=== PATIENT | female | born 1990 | race Caucasian/White ===

== ENCOUNTER 2017-04-14 14:42 | Emergency (ER) | payer OTHER ==
[2017-04-14] MEDS ORDERED: Lidocaine 1% 20 ML MDV INJECT ONE (15:05)
--- NOTE | 2017-04-14 15:08 | EDM.PDOC ---
ED HPI GENERAL MEDICAL PROBLEM - General Chief Complaint: Lower Extremity Injury/Pain Stated Complaint: FOOT PAIN R BIG TOE Time Seen by Provider: 04/14/17 14:56 Source of Information: Reports: Patient History Limitations: Reports: No Limitations - History of Present Illness INITIAL COMMENTS - FREE TEXT/NARRATIVE: HISTORY AND PHYSICAL: History of present illness: Patient is a 26-year-old female who presents to the emergency room after a crush injury to her right great toe. She states she was moving a P on a bench when it fell, crushing the right great toe. She does have a laceration along the nail bed, has a dressing on it for bleeding management. Tetanus is up to date. Review of systems: As per history of present illness and below otherwise all systems reviewed and negative. Past medical history: As per history of present illness and as reviewed below otherwise noncontributory. Surgical history: As per history of present illness and as reviewed below otherwise noncontributory. Social history: No reported history of drug or alcohol abuse. Family history: As per history of present illness and as reviewed below otherwise noncontributory. Physical exam: General: Well-developed and well-nourished 26-year-old female. Alert and oriented. Appears nontoxic and in no acute distress. HEENT: Atraumatic, normocephalic, pupils reactive, negative for conjunctival pallor or scleral icterus, mucous membranes moist, throat clear, neck supple, nontender, trachea midline. Lungs: Clear to auscultation, breath sounds equal bilaterally, chest nontender. Heart: S1S2, regular, negative for clicks, rubs, or JVD. Abdomen: Soft, nondistended, nontender. Negative for masses or hepatosplenomegaly. Negative for costovertebral tenderness. Pelvis: Stable nontender. Genitourinary: Deferred. Rectal: Deferred. Extremities: All extremities herself with full range of motion without difficulty or deficit, negative for cords or calf pain. Neurovascular unremarkable. Skin: Laceration to the base of the nailbed on the right great toe, measuring 2 cm, the medial nail is visable (popped through skin). Neuro: Awake, alert, oriented. Cranial nerves II through XII unremarkable. Cerebellum unremarkable. Motor and sensory unremarkable throughout. Exam nonfocal. Diagnostics: X-ray Therapeutics: 1% lidocaine Bacitracin bulky dressing Post op shoe with crutches Impression: Comminuted minimally displaced phalanx fracture, right great toe Plan: 1. Antibiotic has been prescribed to you. Please take as directed. Continue to monitor for signs of infection as we discussed. 2. It's important for you to follow-up with podiatry. Dr. Arrington's phone number has been given to you. As we discussed, you may lose the nail. 3. Wrights 5/325mg, 1-2 tabs every 4-6 hours as needed has been prescribed. This is a narcotic so do not take it while needing to be driving or functioning with her children. Also take ibuprofen as needed for breakthrough pain. Rest, ice, elevate the extremity. 4. As we discussed please return to the ED as needed. Definitive disposition and diagnosis as appropriate pending reevaluation and review of above. Onset: Today Duration: Minutes: Location: Reports: Lower Extremity, Right right big toe Pain Score (Numeric/FACES): 5 - Related Data Allergies Allergy/AdvReac Type Severity Reaction Status Date / Time No Known Allergies Allergy Verified 04/14/17 14:53 Home Meds: Home Meds . [No Known Home Meds] 04/14/17 [History] Past Medical History HEENT History: Reports: None Cardiovascular History: Reports: None Respiratory History: Reports: None Gastrointestinal History: Reports: None Genitourinary History: Reports: None PATIENT SUPPORT ASSISTANT History: Reports: Musculoskeletal History: Reports: None Neurological History: Reports: None Psychiatric History: Reports: None Endocrine/Metabolic History: Reports: None Hematologic History: Reports: None Immunologic History: Reports: None Oncologic (Cancer) History: Reports: None Dermatologic History: Reports: None - Past Surgical History Head Surgeries/Procedures: Reports: None HEENT Surgical History: Reports: None Cardiovascular Surgical History: Reports: None Respiratory Surgical History: Reports: None GI Surgical History: Reports: None Female Surgical History: Reports: None Endocrine Surgical History: Reports: None Musculoskeletal Surgical History: Reports: None Oncologic Surgical History: Reports: None Social & Family History - Family History Family Medical History: Noncontributory - Tobacco Use Smoking Status *Q: Never Smoker - Caffeine Use Caffeine Use: Reports: None - Recreational Drug Use Recreational Drug Use: No Review of Systems - Review of Systems Review Of Systems: ROS reveals no pertinent complaints other than HPI. ED EXAM, GENERAL - Physical Exam Exam: See Below (See dictation) ED TRAUMA EXTREMITY PROCEDURES - Laceration/Wound Repair Right great toe Appearance: Linear Distal NVT: Neuro & Vascular Intact, No Tendon Injury Anesthetic Type: Local Local Anesthesia - Lidocaine (Xylocaine): 1% Plain Local Anesthetic Volume: 5cc Skin Prep: Chlorhexidine (Hibiciens), Saline, Sterile Drape Saline Irrigation (cc's): 20 Exploration/Debridement/Repair: Wound Explored, No Foreign Material Found Closed With: Sutures Suture Size: other (5-0) # of Sutures: 4 Suture Type: Nylon Course - Vital Signs Last Recorded V/S: Last Vital Signs Temp 98.0 F 04/14/17 14:53 Pulse 55 L 04/14/17 14:53 Resp 18 04/14/17 14:53 BP 138/57 L 04/14/17 14:53 Pulse Ox 99 04/14/17 14:53 - Orders/Labs/Meds Orders: Active Orders 24 hr Category Date Time Status Toes Great Toe Rt T5 [CR] Stat Exams 04/14/17 15:04 Ordered Meds: Medications Discontinued Medications Generic Name Dose Route Start Last Admin Trade Name Freq PRN Reason Stop Dose Admin Lidocaine HCl 20 ml 04/14/17 15:05 Xylocaine 1% INJECT 04/14/17 15:06 ONETIME ONE Departure - Departure Time of Disposition: 15:59 Disposition: Home, Self-Care 01 Clinical Impression: Nailbed injury Phalanx fracture, foot Qualifiers: Encounter type: initial encounter Toe: great toe Fracture type: open Phalanx: distal Fracture alignment: displaced Laterality: right Qualified Code(s): S92.421B - Displaced fracture of distal phalanx of right great toe, initial encounter for open fracture - Discharge Information Referrals: PCP,None [Primary Care Provider] - Forms: ED Department Discharge Additional Instructions: My general discharge The following information is given to patients seen in the emergency department who are being discharged to home. This information is to outline your options for follow-up care. We provide all patients seen in our emergency department with a follow-up referral. The need for follow-up, as well as the timing and circumstances, are variable depending upon the specifics of your emergency department visit. If you don't have a primary care physician on staff, we will provide you with a referral. We always advise you to contact your personal physician following an emergency department visit to inform them of the circumstance of the visit and for follow-up with them and/or the need for any referrals to a consulting specialist. The emergency department will also refer you to a specialist when appropriate. This referral assures that you have the opportunity for follow-up care with a specialist. All of these measure are taken in an effort to provide you with optimal care, which includes your follow-up. Under all circumstances we always encourage you to contact your private physician who remains a resource for coordinating your care. When calling for follow-up care, please make the office aware that this follow-up is from your recent emergency room visit. If for any reason you are refused follow-up, please contact the [facility] Emergency Department at and asked to speak to the emergency department charge nurse. [facility] DR FRANCO (PODIATRY) [address] [place] [id number] 1. Antibiotic has been prescribed to you. Please take as directed. Continue to monitor for signs of infection as we discussed. 2. It's important for you to follow-up with podiatry. Dr. Arrington's phone number has been given to you. As we discussed, you may lose the nail. 3. Wrights 5/325mg, 1-2 tabs every 4-6 hours as needed has been prescribed. This is a narcotic so do not take it while needing to be driving or functioning with her children. Also take ibuprofen as needed for breakthrough pain. Rest, ice, elevate the extremity. 4. As we discussed please return to the ED as needed. - My Orders Last 24 Hours: My Active Orders 04/14/17 15:04 Toes Great Toe Rt T5 [CR] Stat - Assessment/Plan Last 24 Hours: My Active Orders 04/14/17 15:04 Toes Great Toe Rt T5 [CR] Stat
[2017-04-14] MEDS ORDERED: Bacitracin Oint 1 GM U/D Packet TOP ONE (16:07)
--- NOTE | 2017-04-14 18:41 | CR ---
EXAM DATE: 04/14/17 PATIENT'S AGE: 26 Patient: BRITTON NGUYEN Facility: [place], [place] Site . Site : 1990 Study: XRay Extremity Right Toes [id number] 3:30:55 PM Ordering Physician: Doctor Maynard Final Report: Indication: Dropped piano bench on foot. Technique: Right foot 1st digit three views. Comparison: None. Findings: There is a comminuted minimally displaced fracture involving the tuft of the distal 1st phalanx. No additional osseous abnormality. No radiopaque foreign body in the soft tissues. Impression: Fracture of the distal 1st phalanx. Dictated by Damian Guerrier MD @ 04/14/2017 3:35:10 PM Dictated by: Damian Guerrier MD @ 04/14/2017 15:35:24 (Electronic Signature) Report Signed by Proxy. ANDER
== END 2017-04-14 16:25 | disposition home or self-care (01) ==
LOC: MW.ED 14:42
DX: S92.421B Displaced fracture of distal phalanx of right great toe, initial encounter for open fracture (principal); W20.8XXA Other cause of strike by thrown, projected or falling object, initial encounter
CPT/HCPCS: 12001; 73660-26-T5; 73660-T5; 99283

== ENCOUNTER 2018-08-01 01:38 | Inpatient (IN) | payer BC, OTHER ==
[2018-08-01] MEDS ORDERED: Sodium Chloride 0.9% 2.5 ML Syringe FLUSH PRN (01:50)
[2018-08-01] MEDS ORDERED: Sodium Chloride 0.9% 10 ML Syringe FLUSH PRN (01:50)
[2018-08-01] MEDS ORDERED: Tranexamic Acid 1,000 MG in Sodium Chloride 0.9% 100 ML IV PRN (01:50)
[2018-08-01] MEDS ORDERED: Methylergonovine 0.2 MG/1 ML Amp IM PRN (01:50)
[2018-08-01] MEDS ORDERED: Carboprost Tromethamine 250 MCG/1 ML Amp IM PRN (01:50)
[2018-08-01] MEDS ORDERED: Misoprostol 200 MCG Tab PO PRN (01:50)
[2018-08-01] MEDS ORDERED: Ondansetron 4 MG/2 ML SDV IV PRN (01:50)
[2018-08-01] MEDS ORDERED: Sodium Chloride 0.9% 10 ML SDV IV PRN (01:50)
[2018-08-01] MEDS ORDERED: Water For Irrigation,Sterile 1,000 ML Container IRR PRN (01:50)
[2018-08-01] MEDS ORDERED: Nalbuphine 10 MG/1 ML Vial IVPUSH PRN (01:50)
[2018-08-01] MEDS ORDERED: Lidocaine 1% 50 ML MDV INJECT PRN (01:50)
[2018-08-01] MEDS ORDERED: Butorphanol 1 MG/ML SDV IVPUSH PRN (01:50)
[2018-08-01] MEDS ORDERED: Oxytocin/0.9 % Sodium Chloride 30 UNIT/500 ML BAG IV SCH (02:00)
[2018-08-01] MEDS: Lactated Ringers 1,000 ML IV SCH ×3 (02:20→03:46)
--- NOTE | 2018-08-01 02:40 | PCM.LDHP ---
L&D History of Present Illness - General Date of Service: 08/01/18 Admit Problem/Dx: Patient Status Order with Admit Dx/Problem 08/01/18 01:46 Patient Status [ADT] Routine 08/01/18 01:50 Patient Status [ADT] Routine Admission Diagnosis/Problem Admission Diagnosis/Problem 08/01/18 02:35 28yo 08/06/2018 39 2/7weeks, O+, R-NI, GBS neg. Comes in active labor Source of Information: Patient History Limitations: Reports: No Limitations - History of Present Illness Timing/Duration: Reports: minutes: Location, : Reports: Abdomen Quality: Reports: Ache, Stabbing Severity: Moderate Improves with: Reports: None Worsens with: Reports: None Associated Symptoms: Reports: N - Related Data Allergies/Adverse Reactions: Allergies Allergy/AdvReac Type Severity Reaction Status Date / Time No Known Allergies Allergy Verified 02/10/18 22:16 Home Medications: Home Meds . [No Known Home Meds] 04/14/17 [History] Past Medical History HEENT History: Reports: None Cardiovascular History: Reports: None Respiratory History: Reports: None Gastrointestinal History: Reports: None Genitourinary History: Reports: None REIMBURSEMENT LIAISON History: Reports: Musculoskeletal History: Reports: None Neurological History: Reports: None Psychiatric History: Reports: None Endocrine/Metabolic History: Reports: None Hematologic History: Reports: None Immunologic History: Reports: None Oncologic (Cancer) History: Reports: None Dermatologic History: Reports: None - Infectious Disease History Infectious Disease History: Reports: None - Past Surgical History Head Surgeries/Procedures: Reports: None HEENT Surgical History: Reports: None Cardiovascular Surgical History: Reports: None Respiratory Surgical History: Reports: None GI Surgical History: Reports: None Female Surgical History: Reports: None Endocrine Surgical History: Reports: None Musculoskeletal Surgical History: Reports: None Oncologic Surgical History: Reports: None Social & Family History - Family History Family Medical History: Noncontributory - Caffeine Use Caffeine Use: Reports: None H&P Review of Systems - Review of Systems: Review Of Systems: See Below General: Reports: No Symptoms HEENT: Reports: No Symptoms Pulmonary: Reports: No Symptoms Cardiovascular: Reports: No Symptoms Gastrointestinal: Reports: No Symptoms Genitourinary: Reports: No Symptoms Musculoskeletal: Reports: No Symptoms Skin: Reports: No Symptoms Psychiatric: Reports: No Symptoms Neurological: Reports: No Symptoms Hematologic/Lymphatic: Reports: No Symptoms Immunologic: Reports: No Symptoms L&D Exam - Exam Exam: See Below - OB Specific Contraction Intensity: Moderate Movement: Active Heart Tones: Present Heart Tones per Min: 155 Heart Rate (FHR) Variability: Moderate (6-25 bmp) Presentation: Vertex Estimated Weight: 4000 - Millan Score Millan Score Cervix Position: Midposition Millan Score Consistency: Soft Millan Score Effacement: >80% Millan Score Dilation: > 5 cm - Exam General: Alert, Oriented, Cooperative HEENT: Hearing Intact Lungs: Normal Respiratory Effort GI/Abdominal Exam: Soft, Non-Tender Rectal Exam: Deferred Genitourinary: Normal external exam, Normal bimanual exam, Cervical dilitation Back Exam: Normal Inspection, Full Range of Motion Extremities: Normal Inspection, Normal Range of Motion, Non-Tender, No Pedal Edema, Normal Capillary Refill Skin: Warm, Dry, Intact Neurological: Cranial Nerves Intact, Reflexes Equal Bilateral, Strength Equal Bilateral, Normal Speech, Normal Tone Psychiatric: Alert, Normal Affect, Normal Mood - Patient Data Lab Results Last 24 hrs: Laboratory Results - last 24 hr 08/01/18 Range/Units 02:07 WBC 7.68 (4.0-11.0) K/uL RBC 3.96 L (4.30-5.90) M/uL Hgb 12.4 (12.0-16.0) g/dL Hct 35.9 L (36.0-46.0) % MCV 90.7 (80.0-98.0) fL MCH 31.3 (27.0-32.0) pg MCHC 34.5 (31.0-37.0) g/dL RDW Std Deviation 43.2 (28.0-62.0) fl RDW Coeff of Channing 13 (11.0-15.0) % Plt Count 160 (150-400) K/uL MPV 11.40 (7.40-12.00) fL Nucleated RBC % 0.0 /100WBC Nucleated RBCs # 0 K/uL Result Diagrams: 08/01/18 02:07 - Problem List (1) Supervision of normal IUP (intrauterine ) in multigravida SNOMED Code(s): 335538637, 880680588, [id number] ICD Code: Z34.80 - ENCOUNTER FOR SUPRVSN OF NORMAL , UNSP TRIMESTER Status: Acute Priority: High Current Visit: Yes Qualifiers: Trimester: third trimester Qualified Code(s): Z34.83 - Encounter for supervision of other normal , third trimester Problem List Initiated/Reviewed/Updated: Yes Orders Last 24hrs: Active Orders 24 hr Category Date Time Status Patient Status [ADT] Routine ADT 08/01/18 01:50 Active May Shower [RC] ASDIRECTED Care 08/01/18 01:50 Active Notify Provider [RC] PRN Care 08/01/18 01:50 Active Up ad Radha [RC] ASDIRECTED Care 08/01/18 01:46 Active Up ad Radha [RC] ASDIRECTED Care 08/01/18 01:50 Active Vital Signs [RC] PER UNIT ROUTINE Care 08/01/18 01:46 Active Vital Signs [RC] PER UNIT ROUTINE Care 08/01/18 01:50 Active Regular Diet [DIET] Diet 08/01/18 Breakfast Active TYPE AND SCREEN [BBK] Stat Lab 08/01/18 02:07 Received Butorphanol [Stadol] Med 08/01/18 01:50 Active 1 mg IVPUSH Q1H PRN Carboprost Tromethamine [Hemabate DS] Med 08/01/18 01:50 Active 250 mcg IM ASDIRECTED PRN Lactated Ringers [Ringers, Lactated] 1,000 ml Med 08/01/18 02:00 Active IV ASDIRECTED Lidocaine 1% [Xylocaine 1%] Med 08/01/18 01:50 Active 50 ml INJECT ONETIME PRN Methylergonovine [Methergine] Med 08/01/18 01:50 Active 0.2 mg IM ASDIRECTED PRN Nalbuphine [Nubain] Med 08/01/18 01:50 Active 10 mg IVPUSH Q1H PRN Ondansetron [Zofran] Med 08/01/18 01:50 Active 4 mg IV Q6H PRN Oxytocin/0.9 % Sodium Chloride [Oxytocin 30 Unit/500 ML Med 08/01/18 02:00 Active -NS] 30 unit in 500 ml IV TITRATE Sodium Chloride 0.9% [Normal Saline] Med 08/01/18 01:50 Active 10 ml IV ASDIRECTED PRN Sodium Chloride 0.9% [Saline Flush] Med 08/01/18 01:50 Active 10 ml FLUSH ASDIRECTED PRN Sodium Chloride 0.9% [Saline Flush] Med 08/01/18 01:50 Active 2.5 ml FLUSH ASDIRECTED PRN Tranexamic Acid [Cyklokapron] 1,000 mg Med 08/01/18 01:50 Active Sodium Chloride 0.9% [Normal Saline] 100 ml IV ONETIME Water For Irrigation,Sterile [Sterile Water for Med 08/01/18 01:50 Active Irrigation] 1,000 ml IRR ASDIRECTED PRN miSOPROStol [Cytotec] Med 08/01/18 01:50 Active 200 mcg PO ONETIME PRN Scalp Electrode [WOMSER] Per Unit Routine Oth 08/01/18 01:50 Ordered Peripheral IV Insertion Adult [OM.PC] Routine Oth 08/01/18 01:50 Ordered Resuscitation Status Routine Resus Stat 08/01/18 01:46 Ordered Medication Orders Butorphanol Tartrate (Stadol) 1 mg IVPUSH Q1H PRN PRN Reason: Pain Carboprost Tromethamine (Hemabate Ds) 250 mcg IM ASDIRECTED PRN PRN Reason: Post Hemorrhage Tranexamic Acid 1,000 mg/ (Sodium Chloride) 110 mls @ 660 mls/hr IV ONETIME PRN PRN Reason: Bleeding Lactated Ringer's (Ringers, Lactated) 1,000 mls @ 150 mls/hr IV ASDIRECTED MATEUSZ Oxytocin/Sodium Chloride (Oxytocin 30 Unit/500 Ml-Ns) 30 unit in 500 mls @ 999 mls/hr IV TITRATE MATEUSZ Lidocaine HCl (Xylocaine 1%) 50 ml INJECT ONETIME PRN PRN Reason: Laceration repair Methylergonovine Maleate (Methergine) 0.2 mg IM ASDIRECTED PRN PRN Reason: Post Hemorrhage Misoprostol (Cytotec) 200 mcg PO ONETIME PRN PRN Reason: Post Hemorrhage Nalbuphine HCl (Nubain) 10 mg IVPUSH Q1H PRN PRN Reason: Pain (severe 7-10) Ondansetron HCl (Zofran) 4 mg IV Q6H PRN PRN Reason: Nausea/Vomiting Sodium Chloride (Saline Flush) 10 ml FLUSH ASDIRECTED PRN PRN Reason: Keep Vein Open Sodium Chloride (Saline Flush) 2.5 ml FLUSH ASDIRECTED PRN PRN Reason: Keep Vein Open Sodium Chloride (Normal Saline) 10 ml IV ASDIRECTED PRN PRN Reason: IV Use Sterile Water (Sterile Water For Irrigation) 1,000 ml IRR ASDIRECTED PRN PRN Reason: delivery Assessment/Plan Comment:: Labor A: 28yo 08/06/2018 39 2/7weeks, O+, R-NI, GBS neg. Comes in active labor 28yo 08/06/2018 39 2/7weeks, O+, R-NI, GBS neg. Comes in active labor
--- NOTE | 2018-08-01 02:48 | PCM.PREANE ---
Preanesthetic Assessment - Anesthesia/Transfusion/Family Hx Anesthesia History: Prior Anesthesia Without Reaction Family History of Anesthesia Reaction: No Transfusion History: No Prior Transfusion(s) Intubation History: Unknown - Review of Systems General: No Symptoms Pulmonary: No Symptoms Cardiovascular: No Symptoms Gastrointestinal: No Symptoms Neurological: No Symptoms Other: Reports: None - Physical Assessment ASA Class: 2 Mental Status: Alert & Oriented x3 Airway Class: Mallampati = 2 Dentition: Reports: Normal Dentition Thyro-Mental Finger Breadths: 3 Mouth Opening Finger Breadths: 3 ROM/Head Extension: Full Lungs: Clear to Auscultation, Normal Respiratory Effort Cardiovascular: Regular Rate, Regular Rhythm - Lab Values: Laboratory Last Values WBC 7.68 K/uL (4.0-11.0) 08/01/18 02:07 RBC 3.96 M/uL (4.30-5.90) L 08/01/18 02:07 Hgb 12.4 g/dL (12.0-16.0) 08/01/18 02:07 Hct 35.9 % (36.0-46.0) L 08/01/18 02:07 MCV 90.7 fL (80.0-98.0) 08/01/18 02:07 MCH 31.3 pg (27.0-32.0) 08/01/18 02:07 MCHC 34.5 g/dL (31.0-37.0) 08/01/18 02:07 RDW Std Deviation 43.2 fl (28.0-62.0) 08/01/18 02:07 RDW Coeff of Channing 13 % (11.0-15.0) 08/01/18 02:07 Plt Count 160 K/uL (150-400) 08/01/18 02:07 MPV 11.40 fL (7.40-12.00) 08/01/18 02:07 Nucleated RBC % 0.0 /100WBC 08/01/18 02:07 Nucleated RBCs # 0 K/uL 08/01/18 02:07 - Allergies Allergies/Adverse Reactions: Allergies Allergy/AdvReac Type Severity Reaction Status Date / Time No Known Allergies Allergy Verified 02/10/18 22:16 - Acknowledgements Anesthesia Type Planned: Epidural Pt an Appropriate Candidate for the Planned Anesthesia: Yes Alternatives and Risks of Anesthesia Discussed w Pt/Guardian: Yes Pt/Guardian Understands and Agrees with Anesthesia Plan: Yes PreAnesthesia Questionnaire HEENT History: Reports: None Cardiovascular History: Reports: None Respiratory History: Reports: None Gastrointestinal History: Reports: GERD Genitourinary History: Reports: None RELIGION TEACHER History: Reports: : 4 Para: 3 LMP (Approximate): Musculoskeletal History: Reports: None Neurological History: Reports: None Psychiatric History: Reports: None Endocrine/Metabolic History: Reports: None Hematologic History: Reports: None Immunologic History: Reports: None Oncologic (Cancer) History: Reports: None Dermatologic History: Reports: None - Infectious Disease History Infectious Disease History: Reports: None - Past Surgical History Head Surgeries/Procedures: Reports: None HEENT Surgical History: Reports: None Cardiovascular Surgical History: Reports: None Respiratory Surgical History: Reports: None GI Surgical History: Reports: None Female Surgical History: Reports: None Endocrine Surgical History: Reports: None Musculoskeletal Surgical History: Reports: None Oncologic Surgical History: Reports: None - HOME MEDS Home Medications: Home Meds . [No Known Home Meds] 04/14/17 [History] - CURRENT (IN HOUSE) MEDS Current Meds: Current Medications Butorphanol Tartrate (Stadol) 1 mg IVPUSH Q1H PRN PRN Reason: Pain Carboprost Tromethamine (Hemabate Ds) 250 mcg IM ASDIRECTED PRN PRN Reason: Post Hemorrhage Tranexamic Acid 1,000 mg/ (Sodium Chloride) 110 mls @ 660 mls/hr IV ONETIME PRN PRN Reason: Bleeding Lactated Ringer's (Ringers, Lactated) 1,000 mls @ 150 mls/hr IV ASDIRECTED MATEUSZ Oxytocin/Sodium Chloride (Oxytocin 30 Unit/500 Ml-Ns) 30 unit in 500 mls @ 999 mls/hr IV TITRATE MATEUSZ Lidocaine HCl (Xylocaine 1%) 50 ml INJECT ONETIME PRN PRN Reason: Laceration repair Methylergonovine Maleate (Methergine) 0.2 mg IM ASDIRECTED PRN PRN Reason: Post Hemorrhage Misoprostol (Cytotec) 200 mcg PO ONETIME PRN PRN Reason: Post Hemorrhage Nalbuphine HCl (Nubain) 10 mg IVPUSH Q1H PRN PRN Reason: Pain (severe 7-10) Ondansetron HCl (Zofran) 4 mg IV Q6H PRN PRN Reason: Nausea/Vomiting Sodium Chloride (Saline Flush) 10 ml FLUSH ASDIRECTED PRN PRN Reason: Keep Vein Open Sodium Chloride (Saline Flush) 2.5 ml FLUSH ASDIRECTED PRN PRN Reason: Keep Vein Open Sodium Chloride (Normal Saline) 10 ml IV ASDIRECTED PRN PRN Reason: IV Use Sterile Water (Sterile Water For Irrigation) 1,000 ml IRR ASDIRECTED PRN PRN Reason: delivery
[2018-08-01] MEDS ORDERED: Benzocaine/Menthol 20%-0.5% Spray 78 GM Cannister TOP PRN (04:51)
[2018-08-01] MEDS ORDERED: Lanolin 100% Cream 7 GM Tube TOP PRN (04:51)
[2018-08-01] MEDS ORDERED: Witch Hazel Medicated Pads 40/Jar TOP PRN (04:51)
[2018-08-01] MEDS ORDERED: Docusate Sodium 100 MG Cap PO PRN (04:51)
[2018-08-01] MEDS ORDERED: Acetaminophen 500 MG Tab PO PRN ×2 (04:51)
[2018-08-01] MEDS ORDERED: Ibuprofen 400 MG Tab PO PRN (04:51)
[2018-08-01] MEDS ORDERED: Bisacodyl 10 MG Supp RECTAL PRN (04:51)
--- NOTE | 2018-08-01 04:58 | PCM.DEL ---
L & D Note - General Info Date of Service: 08/01/18 Mother's Due Date: 08/06/18 - Delivery Note Labor: Spontaneous Delivery Outcome: Livebirth Infant Delivery Method: Spontaneous Vaginal Delivery-Single Delivery Mode: Spontaneous Presentation: Vertex Nuchal Cord: Present Anesthesia Type: Combined Spinal Epidural Amniotic Fluid Description: Clear Episiotomy Type: None Laceration: None Placenta: Intact, Spontaneous Cord: 3 Vessels Estimated Blood Loss: 150 Resuscitation Needed: No [place]: Stimulated Score 1 min: 8 Score 5 min: 9 Second Stage Interventions: Reports: Pushing, Pulls Own Legs Back Delivery Comments (Free Text/Narrative):: of viable male, Assisted by FOB with delivery, Head delivered with good pushing, nuchal x1 reduced over head, shoulders and body followed easily. Infant with spont cry placed on mothers abd with RN at . Delayed cord clamping , pitocin to IVF, cord clamped x2 and cut by FOB. Cord blood collected. Placenta delivered grossly intact. Inspection noted intact perineum. EBL 150cc. APGARS 8/9, Wt: 7# 10oz. Mother and baby left in stable condition for recovery. - General Info Date of Service: 08/01/18 Functional Status: Reports: Pain Controlled - Review of Systems General: Reports: No Symptoms HEENT: Reports: No Symptoms Pulmonary: Reports: No Symptoms Cardiovascular: Reports: No Symptoms Gastrointestinal: Reports: No Symptoms Genitourinary: Reports: No Symptoms Musculoskeletal: Reports: No Symptoms Skin: Reports: No Symptoms Neurological: Reports: No Symptoms Psychiatric: Reports: No Symptoms - Patient Data Weight - Most Recent: 103.419 kg Lab Results Last 24 Hours: Laboratory Results - last 24 hr 08/01/18 08/01/18 Range/Units 02:07 02:07 WBC 7.68 (4.0-11.0) K/uL RBC 3.96 L (4.30-5.90) M/uL Hgb 12.4 (12.0-16.0) g/dL Hct 35.9 L (36.0-46.0) % MCV 90.7 (80.0-98.0) fL MCH 31.3 (27.0-32.0) pg MCHC 34.5 (31.0-37.0) g/dL RDW Std Deviation 43.2 (28.0-62.0) fl RDW Coeff of [place] 13 (11.0-15.0) % Plt Count 160 (150-400) K/uL MPV 11.40 (7.40-12.00) fL Nucleated RBC % 0.0 /100WBC Nucleated RBCs # 0 K/uL Blood Type O POSITIVE Antibody Screen NEGATIVE Med Orders - Current: Current Medications Acetaminophen (Tylenol Extra Strength) 500 mg PO Q4H PRN PRN Reason: Pain Acetaminophen (Tylenol Extra Strength) 1,000 mg PO Q4H PRN PRN Reason: Pain Benzocaine/Menthol (Dermoplast Pain Relief 20%-0.5% [place]) 78 gm TOP ASDIRECTED PRN PRN Reason: Perineal Comfort Measure Bisacodyl (Dulcolax) 10 mg RECTAL ONETIME PRN PRN Reason: Constipation Docusate Sodium (Colace) 100 mg PO BID PRN PRN Reason: Constipation Emollient Ointment (Lansinoh Hpa) 0 gm TOP ASDIRECTED PRN PRN Reason: Sore Nipples Ibuprofen (Motrin) 400 mg PO Q4H PRN PRN Reason: Pain Ibuprofen (Motrin) 800 mg PO Q6H PRN PRN Reason: Pain Oxycodone HCl (Oxycodone) 5 mg PO Q2H PRN PRN Reason: Pain Witch Kendra (Tucks) 1 pad TOP ASDIRECTED PRN PRN Reason: comfort care Discontinued Medications Butorphanol Tartrate (Stadol) 1 mg IVPUSH Q1H PRN PRN Reason: Pain Carboprost Tromethamine (Hemabate Ds) 250 mcg IM ASDIRECTED PRN PRN Reason: Post Hemorrhage Tranexamic Acid 1,000 mg/ (Sodium Chloride) 110 mls @ 660 mls/hr IV ONETIME PRN PRN Reason: Bleeding Lactated Ringer's (Ringers, Lactated) 1,000 mls @ 150 mls/hr IV ASDIRECTED [facility] Last Admin: 08/01/18 03:46 Dose: 150 mls/hr Oxytocin/Sodium Chloride (Oxytocin 30 Unit/500 Ml-Ns) 30 unit in 500 mls @ 999 mls/hr IV TITRATE [facility] Fentanyl/Bupivacaine HCl (Fezovrot-Pvnmi-Yn 2 Mcg/Ml-0.125%) Confirm Administered Dose 100 mls @ as directed .ROUTE .[facility] ONE Stop: 08/01/18 02:53 Lidocaine HCl (Xylocaine 1%) 50 ml INJECT ONETIME PRN PRN Reason: Laceration repair Methylergonovine Maleate (Methergine) 0.2 mg IM ASDIRECTED PRN PRN Reason: Post Hemorrhage Misoprostol (Cytotec) 200 mcg PO ONETIME PRN PRN Reason: Post Hemorrhage Nalbuphine HCl (Nubain) 10 mg IVPUSH Q1H PRN PRN Reason: Pain (severe 7-10) Ondansetron HCl (Zofran) 4 mg IV Q6H PRN PRN Reason: Nausea/Vomiting Sodium Chloride (Saline Flush) 10 ml FLUSH ASDIRECTED PRN PRN Reason: Keep Vein Open Sodium Chloride (Saline Flush) 2.5 ml FLUSH ASDIRECTED PRN PRN Reason: Keep Vein Open Sodium Chloride (Normal Saline) 10 ml IV ASDIRECTED PRN PRN Reason: IV Use Sterile Water (Sterile Water For Irrigation) 1,000 ml IRR ASDIRECTED PRN PRN Reason: delivery - Exam General: Alert, Oriented, Cooperative, No Acute Distress Lungs: Normal Respiratory Effort GI/Abdominal Exam: Soft, Non-Tender (Female) Exam: Normal External Exam, Normal Bimanual Exam, Vaginal Bleeding Extremities: Normal Inspection, Normal Range of Motion, Non-Tender, No Pedal Edema Skin: Warm, Dry, Intact Neurological: No New Focal Deficit, Normal Speech, Normal Tone Psy/Mental Status: Alert, Normal Affect, Normal Mood - Problem List & Annotations (1) Supervision of normal IUP (intrauterine ) in multigravida SNOMED Code(s): 379234323, 303900267, 779225487 Code(s): Z34.80 - ENCOUNTER FOR SUPRVSN OF NORMAL , UNSP TRIMESTER Status: Acute Priority: High Current Visit: Yes Qualifiers: Trimester: third trimester Qualified Code(s): Z34.83 - Encounter for supervision of other normal , third trimester (2) (normal spontaneous vaginal delivery) SNOMED Code(s): 24302934 Code(s): O80 - ENCOUNTER FOR FULL-TERM UNCOMPLICATED DELIVERY Status: Acute Priority: High Current Visit: Yes - Problem List Review Problem List Initiated/Reviewed/Updated: Yes - My Orders Last 24 Hours: My Active Orders 04/10/19 04:51 May Shower [RC] ASDIRECTED Up ad Radha [RC] ASDIRECTED Vital Signs [RC] PER UNIT ROUTINE Acetaminophen [Tylenol Extra Strength] 1,000 mg PO Q4H PRN Acetaminophen [Tylenol Extra Strength] 500 mg PO Q4H PRN Benzocaine/Menthol [Dermoplast Pain Relief 20%-0.5% [place]] 78 gm TOP ASDIRECTED PRN Bisacodyl [Dulcolax] 10 mg RECTAL ONETIME PRN Docusate Sodium [Colace] 100 mg PO BID PRN Ibuprofen [Motrin] 400 mg PO Q4H PRN Ibuprofen [Motrin] 800 mg PO Q6H PRN Lanolin [Lansinoh HPA] See Dose Instructions TOP ASDIRECTED PRN Witch Kendra [Tucks] 1 pad TOP ASDIRECTED PRN oxyCODONE 5 mg PO Q2H PRN Assess Lochia [WOMSER] Per Unit Routine Assess Uterine Involution [WOMSER] Per Unit Routine Peripheral IV Discontinue [OM.PC] Routine Resuscitation Status Routine 08/01/18 04:52 Patient Status [ADT] Routine 08/01/18 Breakfast Regular Diet [DIET] - Plan Plan:: Labor A: 28yo 08/06/2018 39 2/7weeks, O+, R-NI, GBS neg. Comes in active labor 28yo 08/06/2018 39 2/7weeks, O+, R-NI, GBS neg. Comes in active labor Delivery A: viable male, APGARS 8/9, Wt: 7lb 10oz, Intact perineum, EBL 150cc. Stable P: Routine pp plan of care.
--- NOTE | 2018-08-01 08:34 | PCM48HPAN ---
Post Anesthesia Note - EVALUATION WITHIN 48HRS OF ANESTHETIC Vital Signs in Normal Range: Yes Patient Participated in Evaluation: Yes Respiratory Function Stable: Yes Airway Patent: Yes Cardiovascular Function Stable: Yes Hydration Status Stable: Yes Pain Control Satisfactory: Yes Nausea and Vomiting Control Satisfactory: Yes Mental Status Recovered: Yes - COMMENTS/OBSERVATIONS Free Text/Narrative:: Epidural catheter has been discontinued and patient states she is doing well.
[2018-08-01] MEDS: Ibuprofen 800 MG Tab PO PRN ×2 (10:43→19:28)
[2018-08-01] MEDS: oxyCODONE 5 MG Tab PO PRN ×2 (15:21→23:55)
[2018-08-02] MEDS: Ibuprofen 800 MG Tab PO PRN (05:52)
[2018-08-02] MEDS: oxyCODONE 5 MG Tab PO PRN (05:52)
--- NOTE | 2018-08-02 08:48 | PCM.DCSUM1 ---
Discharge Summary - Hospital Course Free Text/Narrative:: Discharge home with , follow up 6 weeks . Diagnosis: Stroke: No - Discharge Data Discharge Date: 08/02/18 Discharge Disposition: Home, Self-Care 01 Condition: Good - Discharge Diagnosis/Problem(s) (1) Supervision of normal IUP (intrauterine ) in multigravida SNOMED Code(s): 483259475, 116722952, 615083628 ICD Code: Z34.80 - ENCOUNTER FOR SUPRVSN OF NORMAL , UNSP TRIMESTER Status: Acute Priority: High Current Visit: Yes Qualifiers: Trimester: third trimester Qualified Code(s): Z34.83 - Encounter for supervision of other normal , third trimester (2) (normal spontaneous vaginal delivery) SNOMED Code(s): 43626367 ICD Code: O80 - ENCOUNTER FOR FULL-TERM UNCOMPLICATED DELIVERY Status: Acute Priority: High Current Visit: Yes - Patient Instructions Diet: Usual Diet as Tolerated Activity: As Tolerated, No Strenuous Activities, Rest and Relax Today Driving: May Drive Today Showering/Bathing: May Shower Notify Provider of: Fever, Increased Pain, Swelling and Redness, Nausea and/or Vomiting Other/Special Instructions: Discharge home with infant, follow up 6 weeks . - Discharge Plan *PRESCRIPTION DRUG MONITORING PROGRAM REVIEWED*: Not Applicable *COPY OF PRESCRIPTION DRUG MONITORING REPORT IN PATIENT [place]: Not Applicable Prescriptions/Med Rec: Ibuprofen [Motrin] 800 mg PO Q6H PRN #90 tablet PRN Reason: Pain Home Medications: Home Meds Ibuprofen [Motrin] 800 mg PO Q6H PRN #90 tablet 08/02/18 [Rx] Oxygen Therapy Mode: Room Air Referrals: [facility] [Outside] Holly Jara CNM [Mid-] - 09/12/18 1:30 pm - Discharge Summary/Plan Comment DC Time >30 min.: Yes - General Info Date of Service: 08/02/18 Admission Dx/Problem (Free Text: Patient Status Order with Admit Dx/Problem 08/01/18 01:46 Patient Status [ADT] Routine 08/01/18 01:50 Patient Status [ADT] Routine Admission Diagnosis/Problem Admission Diagnosis/Problem 08/01/18 02:35 28yo 08/06/2018 39 2/7weeks, O+, R-NI, GBS neg. Comes in active labor Functional Status: Reports: Pain Controlled, Tolerating Diet, Ambulating, Urinating - Review of Systems General: Reports: No Symptoms HEENT: Reports: No Symptoms Pulmonary: Reports: No Symptoms Cardiovascular: Reports: No Symptoms Gastrointestinal: Reports: No Symptoms Genitourinary: Reports: No Symptoms Musculoskeletal: Reports: No Symptoms Skin: Reports: No Symptoms Neurological: Reports: No Symptoms Psychiatric: Reports: No Symptoms - Patient Data Vitals - Most Recent: Last Vital Signs Temp 36.6 C 08/02/18 04:05 Pulse 71 08/02/18 08:06 Resp 16 08/02/18 08:06 BP 106/69 08/02/18 08:06 Pulse Ox 98 08/02/18 08:06 Weight - Most Recent: 103.419 kg Med Orders - Current: Current Medications Acetaminophen (Tylenol Extra Strength) 500 mg PO Q4H PRN PRN Reason: Pain Last Admin: 08/01/18 15:20 Dose: 500 mg Acetaminophen (Tylenol Extra Strength) 1,000 mg PO Q4H PRN PRN Reason: Pain Benzocaine/Menthol (Dermoplast Pain Relief 20%-0.5% [place]) 78 gm TOP ASDIRECTED PRN PRN Reason: Perineal Comfort Measure Last Admin: 08/01/18 15:17 Dose: 1 spray Bisacodyl (Dulcolax) 10 mg RECTAL ONETIME PRN PRN Reason: Constipation Docusate Sodium (Colace) 100 mg PO BID PRN PRN Reason: Constipation Emollient Ointment (Lansinoh Hpa) 0 gm TOP ASDIRECTED PRN PRN Reason: Sore Nipples Last Admin: 08/01/18 23:54 Dose: 1 tube Ibuprofen (Motrin) 400 mg PO Q4H PRN PRN Reason: Pain Ibuprofen (Motrin) 800 mg PO Q6H PRN PRN Reason: Pain Last Admin: 08/02/18 05:52 Dose: 800 mg Oxycodone HCl (Oxycodone) 5 mg PO Q2H PRN PRN Reason: Pain Last Admin: 08/02/18 05:52 Dose: 5 mg Witch Kendra (Tucks) 1 pad TOP ASDIRECTED PRN PRN Reason: comfort care Last Admin: 08/01/18 15:17 Dose: 1 pad Discontinued Medications Butorphanol Tartrate (Stadol) 1 mg IVPUSH Q1H PRN PRN Reason: Pain Carboprost Tromethamine (Hemabate Ds) 250 mcg IM ASDIRECTED PRN PRN Reason: Post Hemorrhage Tranexamic Acid 1,000 mg/ (Sodium Chloride) 110 mls @ 660 mls/hr IV ONETIME PRN PRN Reason: Bleeding Lactated Ringer's (Ringers, Lactated) 1,000 mls @ 150 mls/hr IV ASDIRECTED [facility] Last Admin: 08/01/18 03:46 Dose: 150 mls/hr Oxytocin/Sodium Chloride (Oxytocin 30 Unit/500 Ml-Ns) 30 unit in 500 mls @ 999 mls/hr IV TITRATE [facility] Last Admin: 08/01/18 04:40 Dose: 999 mls/hr Fentanyl/Bupivacaine HCl (Taxcchqo-Lkbzw-Wh 2 Mcg/Ml-0.125%) Confirm Administered Dose 100 mls @ as directed .ROUTE .[facility] ONE Stop: 08/01/18 02:53 Last Admin: 08/01/18 17:23 Dose: Not Given Lidocaine HCl (Xylocaine 1%) 50 ml INJECT ONETIME PRN PRN Reason: Laceration repair Methylergonovine Maleate (Methergine) 0.2 mg IM ASDIRECTED PRN PRN Reason: Post Hemorrhage Misoprostol (Cytotec) 200 mcg PO ONETIME PRN PRN Reason: Post Hemorrhage Nalbuphine HCl (Nubain) 10 mg IVPUSH Q1H PRN PRN Reason: Pain (severe 7-10) Ondansetron HCl (Zofran) 4 mg IV Q6H PRN PRN Reason: Nausea/Vomiting Sodium Chloride (Saline Flush) 10 ml FLUSH ASDIRECTED PRN PRN Reason: Keep Vein Open Sodium Chloride (Saline Flush) 2.5 ml FLUSH ASDIRECTED PRN PRN Reason: Keep Vein Open Sodium Chloride (Normal Saline) 10 ml IV ASDIRECTED PRN PRN Reason: IV Use Sterile Water (Sterile Water For Irrigation) 1,000 ml IRR ASDIRECTED PRN PRN Reason: delivery - Exam General: Reports: Alert, Oriented, Cooperative, No Acute Distress Lungs: Reports: Clear to Auscultation, Normal Respiratory Effort. Denies: Decreased Breath Sounds Cardiovascular: Reports: Regular Rate, Regular Rhythm, No Murmurs GI/Abdominal Exam: Soft, Non-Tender (Female) Exam: Deferred, Vaginal Bleeding Rectal (Female) Exam: Deferred Back Exam: Reports: Full Range of Motion Extremities: Normal Inspection, Normal Range of Motion, Non-Tender, No Pedal Edema Skin: Reports: Warm, Dry, Intact Neurological: Reports: No New Focal Deficit, Normal Speech, Normal Tone, Strength Equal Bilateral Psy/Mental Status: Reports: Alert, Normal Affect, Normal Mood
== END 2018-08-02 12:50 | disposition home or self-care (01) | DRG 560 ==
LOC: MW.OBCHECK 01:38 → MW.OB 01:40 → MW.OBCHECK 01:50 → MW.OB 01:50 → OBSVTOIN 04:37 → MW.OB 09:23
PROVIDERS: ADMIT Obstetrics & Gynecology; ATTEND Obstetrics & Gynecology
PROC: 10E0XZZ Delivery of Products of Conception, External Approach (ICD-10-PCS; principal; 2018-08-01)
PROC: 6A550ZT Pheresis of Cord Blood Stem Cells, Single (ICD-10-PCS; principal; 2018-08-01)
PROC: 3E0R3BZ Introduction of Anesthetic Agent into Spinal Canal, Percutaneous Approach (ICD-10-PCS; 2018-08-01)
PROC: 00HU33Z Insertion of Infusion Device into Spinal Canal, Percutaneous Approach (ICD-10-PCS; 2018-08-01)
DX: O69.81X0 Labor and delivery complicated by cord around neck, without compression, not applicable or unspecified (principal); Z37.0 Single live birth; Z3A.39 39 weeks gestation of pregnancy
CPT/HCPCS: 36415; 51702; 59025; 59409; 85027; 86850; 86900; 86901; A9270-GY; J2590; J7120